=== PATIENT | male | born 2000 | race Caucasian/White ===

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

== ENCOUNTER → 2020-08-06 | Outpatient (CLI) | payer OTHER | END | disposition home or self-care (01) | LOC: LAB SHORT 09:49 → LAB EV 09:49 | DX: R07.0 Pain in throat (principal) | CPT/HCPCS: 87081 ==

== ENCOUNTER 2021-08-30 18:09 | Emergency (ER) | payer OTHER ==
[~2021-08-30] VITALS: Ht 180.3 cm; Wt 68.0 kg
== END 2021-08-30 19:19 | disposition home or self-care (01) ==
LOC: ER 18:09
DX: S61.211A Laceration without foreign body of left index finger without damage to nail, initial encounter (principal); S61.213A Laceration without foreign body of left middle finger without damage to nail, initial encounter; X58.XXXA Exposure to other specified factors, initial encounter
CPT/HCPCS: 12002; 99282-25

== ENCOUNTER → 2023-02-23 | Outpatient (CLI) | payer OTHER, BC | END | disposition home or self-care (01) | LOC: LAB SHORT 19:45 → LAB 19:45 | DX: J02.9 Acute pharyngitis, unspecified (principal) | CPT/HCPCS: 87081 ==